=== PATIENT | male | born 1965 | race Caucasian/White ===

== ENCOUNTER 2017-01-14 19:04 | Emergency (ER) | payer BC ==
[~2017-01-14 19:04] MED LIST: GLC500 PO; LEVO1TAB35 PO; ZCRUNK
[2017-01-14 19:10] VITALS: TEMP 36.7; Ht 182.9 cm
[2017-01-14] MEDS ORDERED: FUROSEMIDE 40 MG/4 ML VIAL IV STA (19:33)
[2017-01-14 19:57] VITALS: O2SAT 95
--- NOTE | 2017-01-14 20:01 | DIAGNOSTIC IMAGING REPORT ---
CHEST ONE VIEW PORTABLE HISTORY: Evaluate Fever/Sepsis COMPARISON: None. FINDINGS: The heart is mildly enlarged. Low lung volumes. No focal lung consolidations to suggest pneumonia. No evidence for pulmonary edema. No pleural effusions. No pneumothorax. IMPRESSION: Mild cardiomegaly. Electronically signed by: Lamont Stallworth M.D. 01/14/2017 7:59 PM Dictated Date/Time: 01/14/2017 7:59 PM
[2017-01-14] MEDS ORDERED: LISI40TA PO (20:07)
[2017-01-14 20:09] LABS: URINE APPEARANCE CLEAR (CLEAR); URINE BILIRUBIN NEG (NEG); URINE COLOR YELLOW; URINE NITRITE NEG (NEG); URINE PH 5.5 (4.5-7.5); URINE SPECIFIC GRAVITY 1.011 (1.000-1.030); UROBILINOGEN NEG (NEG)
[2017-01-14 20:11] LABS: MANUAL MICROSCOPIC REQUIRED? NO; REVIEW REQ? NO
[2017-01-14 20:13] LABS: BASO % 0.5 %; BASO ABS # 0.04 K/uL (0-0.2); COMPLETE YES; EOS % 3.2 %; HEMATOCRIT 36.7 % (42-52); IG% 0.1 %; LYMPH % 25.5 %; LYMPH ABS # 2.08 K/uL (1.2-3.4); MEAN CELL VOLUME 88.4 fL (80-100); MEAN CORPUSCULAR HEMOGLOBIN 27.5 pg (25-34); MEAN CORPUSCULAR HGB CONC 31.1 g/dl (32-36); MEAN PLATELET VOLUME 8.3 fL (7.4-10.4); MONO % 8.6 %; NEUT % 62.1 %; PLATELET COUNT 407 K/uL (130-400); RED BLOOD COUNT 4.15 M/uL (4.7-6.1); WHITE BLOOD COUNT 8.15 K/uL (4.8-10.8)
[2017-01-14 20:22] LABS: INR 1.1 (0.9-1.1); PARTIAL THROMBOPLASTIN RATIO 1.2; PROTHROMBIN TIME (PATIENT) 11.4 SECONDS (9.0-12.0)
[2017-01-14 20:29] LABS: ALT/SGPT 28 U/L (12-78); AST/SGOT 15 U/L (15-37); BLOOD UREA NITROGEN 13 mg/dl (7-18); BUN/CREATININE RATIO 14.7 (10-20); CALCIUM 8.6 mg/dl (8.5-10.1); CARBON DIOXIDE 25 mmol/L (21-32); CHLORIDE 105 mmol/L (98-107); CREATININE 0.88 mg/dl (0.60-1.40); GLUCOSE 131 mg/dl (70-99); SODIUM 139 mmol/L (136-145)
[2017-01-14 20:32] LABS: ALKALINE PHOSPHATASE 79 U/L (45-117)
[2017-01-14 20:34] LABS: CKMB/CK RATIO 1.1 (0-3.0)
[2017-01-14] MEDS ORDERED: FURO40TA3 PO (20:50)
--- NOTE | 2017-01-14 20:50 | EMERGENCY ROOM VISIT NOTE ---
History Report prepared by Nora: Julio Escalante Under the Supervision of: Dr. Charles Troy D.O. First contact with patient: 19:23 Chief Complaint: SWELLING TO EXTREMITY Stated Complaint: SWELLING IN LEGS,SOB History of Present Illness The patient is a 51 year old male who presents to the Emergency Room with complaints of worsening bilateral leg swelling that has been present for the past month. At the patient's baseline, he notes mild swelling to these areas, but noticed it worsening recently. He does not take any medications for this issue. He has a past medical history of diabetes. He usually uses compression stockings, but when he tried them today, he had pain in his legs. He went to a walk in clinic today and was sent to the ER secondary to his shortness of breath with exertion. He states that he is normally very sedentary. He had a stress test a couple of months ago that was normal. His kidney function was also found to be normal. He denies any of abnormal symptoms. Source of History: patient Onset: last month Position: leg (bilateral) Symptom Intensity: moderate Quality: other (Edema) Timing: worsening Associated Symptoms: + SOB (with exertion) Note: He denies any other abnormal symptoms. Review of Systems See HPI for pertinent positives & negatives. A total of 10 systems reviewed and were otherwise negative. Past Medical & Surgical Medical Problems: (1) Diabetes Family History Omitted secondary to the patient's age. Social History Smoking Status: Never Smoker Smokeless Tobacco Use: No Drug Use: none Marital Status: Housing Status: lives with family Occupation Status: employed Current/Historical Medications Scheduled Cholecalciferol (Vitamin D3), 1 TAB PO DAILY Furosemide (Lasix), 40 MG PO QD Glyburide (Diabeta), 5 MG PO DAILY Lisinopril (Prinivil), 40 MG PO DAILY Metformin Hcl (Glucophage), 1,000 MG PO BID Multivitamin (Multivitamin), 1 TAB PO DAILY Pioglitazone Hcl (Actos), 45 MG PO DAILY Pravastatin Sodium (Pravastatin Sodium), 40 MG PO DAILY Allergies Coded Allergies: Sulfa Antibiotics (Unverified Allergy, Severe, SWELLING, 01/14/17) Penicillins (Unverified Allergy, Intermediate, swelling, 01/23/10) Physical Exam Vital Signs Date Time Temp Pulse Resp B/P (MAP) Pulse Ox O2 Delivery O2 Flow Rate FiO2 01/14/17 20:30 108 6/26/17 19:57 95 Room Air 01/14/17 19:10 36.7 105 20 158/88 93 Room Air Physical Exam CONSTITUTIONAL/VITAL SIGNS: Reviewed / noted above. GENERAL: Non-toxic in appearance. INTEGUMENTARY: Warm, dry, and [place]. HEAD: Normocephalic. EYES: without scleral icterus or trauma. ENT/OROPHARYNX: clear and moist. LYMPHADENOPATHY/NECK: Is supple without lymphadenopathy or meningismus. RESPIRATORY: Lungs clear and equal. CARDIOVASCULAR: Regular rate and rhythm. GI/ABDOMEN: Soft and nontender. No organomegaly or pulsatile mass. No rebound or guarding. Normal bowel sounds. Lower abdominal edema. EXTREMITIES: Pitting pedal edema to the bilateral lower extremities. Appears symmetric. BACK: No CVA tenderness. NEUROLOGICAL: Intact without focal deficits. PSYCHIATRIC: normal affect. MUSCULOSKELETAL: Normally developed with good muscle tone. Medical Decision & Procedures ER Provider Diagnostic Interpretation: Radiology results as stated below per my review and radiologist interpretation: CHEST ONE VIEW PORTABLE HISTORY: Evaluate Fever/Sepsis COMPARISON: None. FINDINGS: The heart is mildly enlarged. Low lung volumes. No focal lung consolidations to suggest pneumonia. No evidence for pulmonary edema. No pleural effusions. No pneumothorax. IMPRESSION: Mild cardiomegaly. Electronically signed by: Lamont Stallworth M.D. 01/14/2017 7:59 PM Dictated Date/Time: 01/14/2017 7:59 PM Laboratory Results 01/14/17 20:00 Red Blood Count 4.15, Mean Corpuscular Volume 88.4, Mean Corpuscular Hemoglobin 27.5, Mean Corpuscular Hemoglobin Concent 31.1, Mean Platelet Volume 8.3, Neutrophils (%) (Auto) 62.1, Lymphocytes (%) (Auto) 25.5, Monocytes (%) (Auto) 8.6, Eosinophils (%) (Auto) 3.2, Basophils (%) (Auto) 0.5, Neutrophils # (Auto) 5.06, Lymphocytes # (Auto) 2.08, Monocytes # (Auto) 0.70, Eosinophils # (Auto) 0.26, Basophils # (Auto) 0.04 01/14/17 20:00 Test 01/14/17 19:50 01/14/17 20:00 Urine Color YELLOW Urine Appearance CLEAR (CLEAR) Urine pH 5.5 (4.5-7.5) Urine Specific [place] 1.011 (1.000-1.030) Urine Protein NEG (NEG) Urine Glucose (UA) NEG (NEG) Urine Ketones NEG (NEG) Urine Occult Blood NEG (NEG) Urine Nitrite NEG (NEG) Urine Bilirubin NEG (NEG) Urine Urobilinogen NEG (NEG) Urine Leukocyte Esterase NEG (NEG) White Blood Count 8.15 K/uL (4.8-10.8) Red Blood Count 4.15 M/uL (4.7-6.1) Hemoglobin 11.4 g/dL (14.0-18.0) Hematocrit 36.7 % (42-52) Mean Corpuscular Volume 88.4 fL (80-100) Mean Corpuscular Hemoglobin 27.5 pg (25-34) Mean Corpuscular Hemoglobin Concent 31.1 g/dl (32-36) Platelet Count 407 K/uL (130-400) Mean Platelet Volume 8.3 fL (7.4-10.4) Neutrophils (%) (Auto) 62.1 % Lymphocytes (%) (Auto) 25.5 % Monocytes (%) (Auto) 8.6 % Eosinophils (%) (Auto) 3.2 % Basophils (%) (Auto) 0.5 % Neutrophils # (Auto) 5.06 K/uL (1.4-6.5) Lymphocytes # (Auto) 2.08 K/uL (1.2-3.4) Monocytes # (Auto) 0.70 K/uL (0.11-0.59) Eosinophils # (Auto) 0.26 K/uL (0-0.5) Basophils # (Auto) 0.04 K/uL (0-0.2) RDW Standard Deviation 43.5 fL (36.4-46.3) RDW Coefficient of Variation 13.5 % (11.5-14.5) Immature Granulocyte % (Auto) 0.1 % Immature Granulocyte # (Auto) 0.01 K/uL (0.00-0.02) Prothrombin Time 11.4 SECONDS (9.0-12.0) Prothromb Time International Ratio 1.1 (0.9-1.1) Activated Partial Thromboplast Time 30.1 SECONDS (21.0-31.0) Partial Thromboplastin Ratio 1.2 Anion Gap 9.0 mmol/L (3-11) Estimated GFR () 116.1 Estimated GFR (Non- 100.2 BUN/Creatinine Ratio 14.7 (10-20) Calcium Level 8.6 mg/dl (8.5-10.1) Total Bilirubin 0.4 mg/dl (0.2-1) Direct Bilirubin < 0.1 mg/dl (0-0.2) Aspartate Amino Transf (AST/SGOT) 15 U/L (15-37) Alanine Aminotransferase (ALT/SGPT) 28 U/L (12-78) Alkaline Phosphatase 79 U/L (45-117) Total Creatine Kinase 167 U/L (39-308) Creatine Kinase MB 1.9 ng/ml (0.5-3.6) Creatine Kinase MB Ratio 1.1 (0-3.0) Troponin I < 0.015 ng/ml (0-0.045) Pro-B-Type Natriuretic Peptide 54 pg/ml (0-900) Total Protein 7.5 gm/dl (6.4-8.2) Albumin 3.5 gm/dl (3.4-5.0) Lipase 111 U/L (73-393) Laboratory results as stated above per my review. Medications Administered Medications (Trade) Dose Ordered Sig/Yonas Route Start Time Stop Time Status Last Admin Dose Admin Furosemide (Lasix Inj) 40 mg NOW STAT IV 01/14/17 19:33 01/14/17 19:36 DC 01/14/17 19:33 40 MG ECG Indication: SOB/dyspnea Rate (beats per minute): 112 Rhythm: sinus tachycardia Findings: no acute ischemic change, no ectopy ED Course 1922: Previous medical records were reviewed. The patient was evaluated in room B2. A complete history and physical examination was performed. 1932: Ordered Lasix Inj 40 mg IV 2051: On reevaluation, the patient is resting. I discussed the results and findings with the patient. He verbalized agreement of the treatment plan. He was discharged home. Medical Decision Differential includes DVT, congestive heart failure, multifactorial edema, anasarca, musculoskeletal, infection, joint effusion, trauma, lymphedema, idiopathic, CHF, as well as others were entertained.. Medication Reconciliation: I attest that I have personally reviewed the patient' s current medication list. Blood pressure Screening: Patient was found to have an elevated blood pressure and was referred to their primary doctor for recheck and further treatment. This is a 51-year-old male who presents to the ED with a chief complaint of lower extremity edema. He states that his edema is mostly chronic but seems to be worsening. He has had recent cardiac evaluation including echocardiogram which was reportedly normal. The patient has edema in his lower extremities and also in the lower abdomen. He denies any shortness of breath. He is a very large male. The patient has not had fevers or other illness. His edema is symmetric. Exam reveals bilateral pedal edema that appears to be pitting in the lower portions of the extremities. Edema is difficult to appreciate in the upper portions of the lower extremities. There is some dependent edema in the lower pannus. The patient has a chest x-ray that does not show acute disease. CBC and complete metabolic panel are unremarkable. Troponin is negative, BNP is normal. EKG showed a sinus tach at a rate of 112. The patient was given IV Lasix here. He'll be discharged on a 5 day course of Lasix. I recommended follow-up with his PCP. Impression Primary Impression: Swelling of left extremity Additional Impression: Swelling of right extremity Scribe Attestation The scribe's documentation has been prepared under my direction and personally reviewed by me in its entirety. I confirm that the note above accurately reflects all work, treatment, procedures, and medical decision making performed by me. Departure Information Dispostion Home / Self-Care Prescriptions Furosemide (LASIX) 40 Mg Tab 40 MG PO QD for 5 Days, #5 TAB Prov: Charles Troy D.O. 01/14/17 Referrals Stpehen Huffman M.D. (PCP) Forms HOME CARE DOCUMENTATION FORM, IMPORTANT VISIT INFORMATION, WORK / SCHOOL INSTRUCTIONS Patient Instructions My [facility] Additional Instructions Lasix as prescribed once daily. This will make you urinate frequently. Follow-up with your doctor later this week for recheck. Problem Qualifiers
[2017-01-14 21:32] VITALS: BP 129/74; PULSE 108; O2SAT 97
== END 2017-01-14 21:46 | disposition home or self-care (01) ==
LOC: C.EDB 19:05
DX: R60.0 Localized edema (principal); E11.9 Type 2 diabetes mellitus without complications; Z79.84 Long term (current) use of oral hypoglycemic drugs

== ENCOUNTER → 2017-03-15 | Outpatient (CLI) | payer BC ==
[~2017-03-15] MED LIST changes: +ACT/45 PO; +CHOL1000 PO; -GLC500 PO; +GLY/5 PO; -LEVO1TAB35 PO; +LISI40TA PO; +LOSA100T65 PO; +METF-384 PO; +MULT-506 PO; +PRAV40TA2 PO; +VNTHFA/IN INH; -ZCRUNK
--- NOTE | 2017-03-15 17:09 | DIAGNOSTIC IMAGING REPORT ---
CHEST 2 VIEWS ROUTINE CLINICAL HISTORY: 51 years-old Male presenting with SOB. TECHNIQUE: PA and lateral views of the chest were obtained. COMPARISON: 01/14/2017. FINDINGS: Cardiac silhouette enlarged, unchanged. Lungs and pleural spaces clear. Osseous structures normal. Upper abdomen normal. IMPRESSION: 1. Cardiomegaly. No other acute cardiopulmonary disease. Electronically signed by: Tomi Young M.D. 03/15/2017 5:07 PM Dictated Date/Time: 03/15/2017 5:04 PM
== END | disposition home or self-care (01) ==
LOC: C.RAD1850 16:08
PROVIDERS: ATTEND Family Medicine
DX: R06.02 Shortness of breath (principal); I51.7 Cardiomegaly

== ENCOUNTER 2017-03-19 16:40 | Emergency (ER) | payer BC ==
[~2017-03-19] VITALS: Ht 182.9 cm; Wt 235.0 kg
[~2017-03-19 16:40] MED LIST changes: -ACT/45 PO; -CHOL1000 PO; -GLY/5 PO; -LOSA100T65 PO; -METF-384 PO; -MULT-506 PO; -OPTIRAY 320 IV PRN; -PRAV40TA2 PO; -VNTHFA/IN INH
[2017-03-19 17:07] VITALS: TEMP 36.8; Ht 182.9 cm; Wt 235.0 kg
[2017-03-19 19:05] LABS: BASO % 0.6 %; BASO ABS # 0.06 K/uL (0-0.2); COMPLETE YES; EOS % 2.5 %; HEMATOCRIT 33.8 % (42-52); IG% 0.2 %; LYMPH % 19.3 %; LYMPH ABS # 1.92 K/uL (1.2-3.4); MEAN CELL VOLUME 87.8 fL (80-100); MEAN CORPUSCULAR HEMOGLOBIN 27.8 pg (25-34); MEAN CORPUSCULAR HGB CONC 31.7 g/dl (32-36); MEAN PLATELET VOLUME 8.6 fL (7.4-10.4); MONO % 9.1 %; NEUT % 68.3 %; PLATELET COUNT 397 K/uL (130-400); RED BLOOD COUNT 3.85 M/uL (4.7-6.1); WHITE BLOOD COUNT 9.96 K/uL (4.8-10.8)
[2017-03-19] MEDS: SODIUM CHLORIDE 0.9% 1000ML 1,000 ML IV STA ×2 (19:08→19:50)
[2017-03-19 19:19] LABS: BLOOD UREA NITROGEN 18 mg/dl (7-18); BUN/CREATININE RATIO 16.4 (10-20); CALCIUM 8.5 mg/dl (8.5-10.1); CARBON DIOXIDE 26 mmol/L (21-32); CHLORIDE 102 mmol/L (98-107); GLUCOSE 228 mg/dl (70-99); POTASSIUM 4.5 mmol/L (3.5-5.1); SODIUM 134 mmol/L (136-145)
--- NOTE | 2017-03-19 19:19 | DIAGNOSTIC IMAGING REPORT ---
CHEST ONE VIEW PORTABLE CLINICAL HISTORY: Atypical chest pain COMPARISON STUDY: A 2517 FINDINGS: The cardiac silhouette remains markedly enlarged with a globular configuration. There is no failure. There is no focal pulmonary consolidation.[ No pleural effusions are visualized. IMPRESSION: 1. No acute findings 2. Stable enlarged cardiac silhouette with a globular configuration Electronically signed by: Kayode Guzman M.D. 03/19/2017 7:18 PM Dictated Date/Time: 03/19/2017 7:17 PM
[2017-03-19] MEDS ORDERED: VNTHFA/IN INH (19:24)
[2017-03-19] MEDS ORDERED: LOSA100T65 PO (19:24)
[2017-03-19] MEDS ORDERED: METF-384 PO (20:06)
[2017-03-19] MEDS ORDERED: ACT/45 PO (20:07)
[2017-03-19] MEDS ORDERED: MULT-506 PO (20:07)
[2017-03-19] MEDS ORDERED: GLY/5 PO (20:07)
[2017-03-19] MEDS ORDERED: CHOL1000 PO (20:07)
[2017-03-19] MEDS ORDERED: PRAV40TA2 PO (20:07)
--- NOTE | 2017-03-19 21:44 | EMERGENCY ROOM VISIT NOTE ---
History Report prepared by Nora: Jessica Shaver Under the Supervision of: Dr. Kevin Figueroa D.O. First contact with patient: 18:32 Chief Complaint: REFERRED BY DOCTOR Stated Complaint: REFFERED FROM CT SCAN History of Present Illness The patient is a 51 year old male who presents to the Emergency Room with complaints of worsening SOB starting 4 months ago. The patient went to the walk in clinic 4 days ago for his SOB and was sent to have a chest CT after an elevated D dimer. He had the CT today and was sent to the ED after the results. His SOB worsens when he walks around or bends over. He is SOB when he lies down at night to sleep. He does not feel SOB at rest. He notes leg swelling and abdominal fullness for the past 2 months. He has had a productive cough for the past month. He denies any chest pain. He reports steady weight gain which is normal for him. He is not on any blood thinners. No trauma. He denies any history of KS or cancer. He has a history of type 2 diabetes and hypertension. 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 He had a stress test and echocardiogram in October which were normal. CT was performed as an outpatient which showed a large pericardial effusion patient was referred into the ER. Source of History: patient Onset: 4 months ago Position: other (global) Quality: other (SOB) Timing: worsening Modifying Factors (Worsening): exertion, movement, other (lying flat) Modifying Factors (Relieving): rest Associated Symptoms: + cough, No chest pain Note: Pt reports abdominal fullness, leg swelling. Review of Systems See HPI for pertinent positives & negatives. A total of 10 systems reviewed and were otherwise negative. Past Medical & Surgical Medical Problems: (1) Diabetes Family History No pertinent family history stated. Social History Smoking Status: Never Smoker Drug Use: none Marital Status: Housing Status: lives with family Occupation Status: employed Current/Historical Medications Scheduled Albuterol Hfa (Ventolin Hfa), 2 PUFFS INH QID Cholecalciferol (Vitamin D3), 1,000 INTER.UNIT PO DAILY Glyburide (Diabeta), 5 MG PO DAILY Losartan Potassium (Cozaar), 100 MG PO DAILY Metformin Hcl (Glucophage), 1,000 MG PO BID Multivitamin (Multivitamin), 1 TAB PO DAILY Pioglitazone Hcl (Actos), 45 MG PO DAILY Pravastatin Sodium (Pravastatin Sodium), 40 MG PO DAILY Allergies Coded Allergies: Sulfa Antibiotics (Unverified Allergy, Severe, SWELLING, 01/14/17) Penicillins (Unverified Allergy, Intermediate, swelling, 01/23/10) Physical Exam Vital Signs Date Time Temp Pulse Resp B/P (MAP) Pulse Ox O2 Delivery O2 Flow Rate FiO2 03/19/17 22:10 118 21 95 03/19/17 22:01 132/98 03/19/17 21:40 118 25 94 03/19/17 21:38 116 25 114/81 94 Room Air 03/19/17 21:04 115 30 131/90 95 Room Air 03/19/17 20:33 115 20 125/77 95 Room Air 03/19/17 20:31 112/90 03/19/17 20:30 115 29 95 03/19/17 20:09 114/75 03/19/17 20:00 117 12 95 03/19/17 19:30 124 34 91 03/19/17 19:25 121 23 116/76 94 Room Air 03/19/17 19:15 121 03/19/17 17:07 36.8 118 24 112/76 95 Room Air Physical Exam GENERAL: morbidly obese, sitting up in bed, disheveled EYE EXAM: normal conjunctiva OROPHARYNX: no exudate, no erythema, lips, buccal mucosa, and tongue normal and mucous membranes are moist NECK: supple, no nuchal rigidity, no adenopathy, non-tender LUNGS: Clear to auscultation. Normal chest wall mechanics HEART: distant heart sounds, positive S1, positive S2 BEDSIDE ECHO: Limited secondary to body habitus, Large pericardial effusion with what appears to be tamponade physiology ABDOMEN: abdomen soft, non-tender, normo-active bowel sounds, no masses, no rebound or guarding. UPPER EXTREMITIES: upper extremities are grossly normal. LOWER EXTREMITIES: Pitting edema tracking up to the abdomen. NEURO EXAM: Normal sensorium, cranial nerves II-XII grossly intact, normal speech, no gross weakness of arms, no gross weakness of legs. Medical Decision & Procedures ER Provider Diagnostic Interpretation: Radiology results as stated below per my review and the radiologist's interpretation: CHEST ONE VIEW PORTABLE CLINICAL HISTORY: Atypical chest pain COMPARISON STUDY: A 251 FINDINGS: The cardiac silhouette remains markedly enlarged with a globular configuration. There is no failure. There is no focal pulmonary consolidation.[ No pleural effusions are visualized. IMPRESSION: 1. No acute findings 2. Stable enlarged cardiac silhouette with a globular configuration Electronically signed by: Kayode Guzman M.D. 03/19/2017 7:18 PM Dictated Date/Time: 03/19/2017 7:17 PM Laboratory Results 03/19/17 18:55 Red Blood Count 3.85, Mean Corpuscular Volume 87.8, Mean Corpuscular Hemoglobin 27.8, Mean Corpuscular Hemoglobin Concent 31.7, Mean Platelet Volume 8.6, Neutrophils (%) (Auto) 68.3, Lymphocytes (%) (Auto) 19.3, Monocytes (%) (Auto) 9.1, Eosinophils (%) (Auto) 2.5, Basophils (%) (Auto) 0.6, Neutrophils # (Auto) 6.80, Lymphocytes # (Auto) 1.92, Monocytes # (Auto) 0.91, Eosinophils # (Auto) 0.25, Basophils # (Auto) 0.06 03/19/17 18:55 Test 03/19/17 18:55 White Blood Count 9.96 K/uL (4.8-10.8) Red Blood Count 3.85 M/uL (4.7-6.1) Hemoglobin 10.7 g/dL (14.0-18.0) Hematocrit 33.8 % (42-52) Mean Corpuscular Volume 87.8 fL (80-100) Mean Corpuscular Hemoglobin 27.8 pg (25-34) Mean Corpuscular Hemoglobin Concent 31.7 g/dl (32-36) Platelet Count 397 K/uL (130-400) Mean Platelet Volume 8.6 fL (7.4-10.4) Neutrophils (%) (Auto) 68.3 % Lymphocytes (%) (Auto) 19.3 % Monocytes (%) (Auto) 9.1 % Eosinophils (%) (Auto) 2.5 % Basophils (%) (Auto) 0.6 % Neutrophils # (Auto) 6.80 K/uL (1.4-6.5) Lymphocytes # (Auto) 1.92 K/uL (1.2-3.4) Monocytes # (Auto) 0.91 K/uL (0.11-0.59) Eosinophils # (Auto) 0.25 K/uL (0-0.5) Basophils # (Auto) 0.06 K/uL (0-0.2) RDW Standard Deviation 45.3 fL (36.4-46.3) RDW Coefficient of Variation 14.1 % (11.5-14.5) Immature Granulocyte % (Auto) 0.2 % Immature Granulocyte # (Auto) 0.02 K/uL (0.00-0.02) Anion Gap 6.0 mmol/L (3-11) Est Creatinine Clear Calc Drug Dose 159.7 ml/min Estimated GFR () 90.2 Estimated GFR (Non- 77.9 BUN/Creatinine Ratio 16.4 (10-20) Calcium Level 8.5 mg/dl (8.5-10.1) Total Creatine Kinase 221 U/L (39-308) Creatine Kinase MB 2.3 ng/ml (0.5-3.6) Creatine Kinase MB Ratio 1.0 (0-3.0) Troponin I < 0.015 ng/ml (0-0.045) Pro-B-Type Natriuretic Peptide 135 pg/ml (0-900) Thyroid Stimulating Hormone (TSH) 3.700 uIu/ml (0.300-4.500) Laboratory results per my review. Medications Administered Medications (Trade) Dose Ordered Sig/Yonas Route Start Time Stop Time Status Last Admin Dose Admin Sodium Chloride 1,000 ml @ 999 mls/hr Q1H1M STAT IV 03/19/17 18:58 03/19/17 19:58 DC 03/19/17 19:50 999 MLS/HR ECG Indication: tachycardia Rate (beats per minute): 126 Rhythm: sinus tachycardia Findings: other (low voltage, T wave flattening inferior and lateral) ED Course ED COURSE: Vital signs were reviewed and showed tachycardia. The patients medical record was reviewed The above diagnostic studies were performed and reviewed. ED treatments and interventions as stated above. 1837: The patient was evaluated in room B6. A complete history and physical examination was performed. 8: NSS 1000 ml @ 999 mls/hr IV. 9: I discussed the patient's case with Dr. Jay, [facility] cardiology. He discussed with Dr. Esteban who was social contact worker who noted that he would be unable to perform the procedure secondary to patient's weight/body habitus. He will come to evaluate the patient. 1909: I discussed the patient's case with Dr. Fritz, [facility] roll tender. He will come evaluate the patient. 1929: Bedside echo was performed with cardiology at bedside. 1942: I discussed the patient's case with [facility] who declines the patient. 1954: I discussed the patient's case with Dr. Garcia, cardiothoracic surgery [facility]. He has accepted the patient for transfer. 1957: I discussed the patient's case with Dr. Luciano, emergency medicine [facility]. The patient has been accepted for transfer. 2026: Upon reevaluation, the patient is stable.I discussed my findings with the patient and he understands and agrees with the treatment plan. Based on the patients age, coexisting illnesses, exam and lab findings the decision to treat as an inpatient was made. The patient remained stable while under my care. The patient will be transferred to [facility]. 2035: I discussed the patient's case with Esequiel Gerardhey interventional cardiology. He agrees with transfer to [facility] by [facility]. Patient is awaiting transport. 2112: [facility] has been turned around by weather. Ground transport will be arranged. Medical Decision Differential diagnoses includes but is not limited to pneumonia, bronchitis, COPD/Asthma exacerbation, pneumothorax, pulmonary embolism, congestive heart failure, acute coronary syndrome. Patient is a 51-year-old male who has had progressive shortness breath for the past several months. He notes recently over the past week it has significantly worsened. He has CT PE performed as an outpatient today and was referred into the ER for a pericardial effusion. There is no history of trauma, recent surgery , blood thinners, no thyroid issues, infections, and no history of cancer. Bedside ultrasound shows a large pericardial effusion and what appears to be partial collapse of the RV and diastole but difficult to evaluate secondary to body habitus. At this time, initially consulted cardiology who evaluated him at bedside. He agrees that it is a limited exam and this needs to be drained. He discussed this with our director medical writing. With his weight he is unable to perform it under fluoroscopy on the Table. Consequently he recommended transferring. Following this I did look up this gentleman's insurance but based on his weight I did not think we would be able to fly him to [place]. I felt uncomfortable sending him to [place] over a two-hour drive in an ambulance. I did call [facility] who declined to accept him due to his body habitus. Following this I contacted [facility] and he was accepted by Dr. Garcia from cardiothoracic surgery. They did contact the ER to obtain a bed to transfer him quicker; accepted by Dr. Luciano. [facility] declined to fly. [facility] did accept but eventually had to turn around secondary to weather. I discussed the case with Dr Marshall from [facility] who gave the precertification to transfer to [facility] as it is closer. Patient was given a bolus normal saline. Blood pressure remained stable. He remained persistently tachycardic as expected. Patient will be taken to [facility] via [email or web address] ground as no one can fly and it is the closest facility that will accept this gentleman who is tachycardic with a large pericardial effusion and EKG with low voltage and a bedside echo which suggest early tamponade physiology. I did not do a pericardiocentesis emergently in the ER as he does appear to be stable and this appears to be more of a prolonged course. Medication Reconcilliation Current Medication List: was personally reviewed by me Blood Pressure Screening Patient's blood pressure: Normal blood pressure Blood pressure disposition: Did not require urgent referral Consults Time Called: 1849 Consulting Physician: Dr. Jay, [facility] cardiology Returned Call: 1858 I discussed the patient's case with him. He discussed with Dr. Esteban who was social contact worker who noted that he would be unable to perform the procedure secondary to patient's weight/body habitus. He will come to evaluate the patient. Additional Consults: Time Called: 1899 Consulted Physician: Dr. Fritz, [facility] roll tender Returned Call: 1909 Additional Comments: I discussed the patient's case with him. He will come evaluate the patient. Time Called: 1932 Consulted Physician: [facility] Returned Call: 1942 Additional Comments: I discussed the patient's case with [facility] who declines the patient. Impression Primary Impression: Tamponade Additional Impression: Pericardial effusion Critical Care I have personally spent 35 minutes of critical care time in the direct management of this patient. This includes bedside care, interpretation of diagnostic studies, and testing, discussion with consultants, patient, and family members, and other required patient management activities. This 35 minutes is in excess of all separately billable procedures. Scribe Attestation The scribe's documentation has been prepared under my direction and personally reviewed by me in its entirety. I confirm that the note above accurately reflects all work, treatment, procedures, and medical decision making performed by me. Departure Information Dispostion Transfer Acute Care Facility Referrals Stephen Huffman M.D. (PCP) Patient Instructions My [facility] Problem Qualifiers
[2017-03-19 22:35] VITALS: BP 118/89; PULSE 118; O2SAT 94
--- NOTE | 2017-03-20 06:51 | CARDIOLOGY CONSULTATION ---
DATE OF CONSULTATION: 03/19/2017 TIME: 7:[address] Figueroa in the Emergency Room. NONPROFIT FUNDRAISER: Bg Jay D.O., [facility] Cardiology. REASON FOR CONSULTATION: Large pericardial effusion. Dear Dr. Figueroa, then requesting cardiology consultation on Yoshi with regards to his large pericardial effusion. As you know, he has had progressive shortness of breath over the last 4 months. 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 He has chronic lower extremity edema secondary to his morbid obesity and likely venous insufficiency. He notes he has had increased abdominal distention. He believes his weight is up, but he does not weigh himself on a regular basis. He has been short of breath even sleeping at night and he notes that although he is sleeping in bed he does feel dyspneic, lying flat. He denies any chest pain. He does have productive sputum which is whitish in color. He denies any fevers or chills or recent upper respiratory tract infection or a recent viral illness. He denies any constitutional symptoms to suggest systemic inflammatory illness. He denies any palpitations, although he is aware that his heart rate is faster than usual. He has chronic erythema of his lower extremities. In light of his ongoing dyspnea, he was sent for a CAT scan this evening to rule out a pulmonary embolism. There was no evidence of thoracic aortic dilation. There was suboptimal pulmonary artery opacification without any evidence of central emboli. There were no pleural effusions. There is a very large pericardial effusion which exceeds water attenuation and therefore could be hemorrhagic or exudative. In personally reviewing his CAT scan images with Dr. Figueroa, he has approximately a 4 cm effusion around the LV and a 3 cm fusion around the RV. The rest of review of systems otherwise negative. PAST MEDICAL HISTORY: 1. Large pericardial effusion likely with some degree of tamponade physiology. 2. Morbid obesity. 3. Chronic lower extremity edema. 4. Diabetes mellitus type 2. 5. Hyperlipidemia. SOCIAL HISTORY: He is , he lives with his family. Denies any tobacco or alcohol use. FAMILY HISTORY: Noncontributory. ALLERGIES: SULFA AND PENICILLIN. PHYSICAL EXAMINATION: GENERAL: He is awake, alert, oriented x3. He does look to be in a mild degree of distress. He is short of breath lying flat. He is short of breath lying on his left side to do bedside imaging. VITAL SIGNS: His heart rate is 121, his respirations are 23, his blood pressure 116/76, his pulse ox is 94% on room air. HEENT AND NECK: His carotid upstrokes were diminished and tachycardic. I could not assess his jugular venous pressure due to his neck size. His sclerae is anicteric. His hearing is normal. There were no carotid bruits. LUNGS: Clear to auscultation bilaterally. No rales, rhonchi or wheezing. HEART: Tachycardic, his heart sounds are very distant. There were no appreciable murmurs or rubs. ABDOMEN: Obese, nontender, nondistended. SKIN: Significant striae on his abdominal wall. EXTREMITIES: Moderate pitting edema to the knees bilaterally with significant erythema of his lower extremities. PSYCHIATRIC: His affect appeared appropriate. NEUROLOGIC: He is awake, alert and oriented x3. DIAGNOSTIC STUDIES: Chest x-ray, enlarged cardiac silhouette with a globular configuration. CAT scan as discussed above. LABORATORY STUDIES: Hemoglobin 10.7, white count 9.96, his platelet count is 397. Sodium 134, potassium 4.5, BUN 18, creatinine 1.1. His troponin is negative. His ProBNP was normal. His TSH is normal. EKG - sinus tachycardia, low voltage QRS with some degree of electrical alternans versus respiratory variation. Bedside echo very limited study done with Dr. Figueroa, he has a large a 3 cm anterior pericardial effusion. There appears to be a 2 cm posterior pericardial effusion. The RV free wall is not well seen. IMPRESSION: 1. Large symptomatic pericardial effusion with concern for tamponade physiology. 2. Progressive shortness of breath and dyspnea on exertion. 3. Morbid obesity, weighing 240 kilograms. 4. Chronic lower extremity edema. PLAN AND RECOMMENDATIONS: I did contact Dr. Esteban, of interventional cardiology and we are both in agreement that this pericardial effusion cannot be drained here at [facility]. The cytology laboratory manager table will not hold Mr. Beltran's weight, in addition Dr. Esteban only feels comfortable doing it under fluoroscopic guidance and does not feel like that procedure can be done safely here at [facility]. In addition, he likely needs a pericardial window with a pericardial biopsy and placement of a pigtail catheter, which cannot be performed here either. As was discussed with Dr. Figueroa, I believe he needs to be transferred to a facility that has CT surgical capability as this will need to be performed in the operating room. As was discussed with Dr. Esteban, I would not to delay in having the histology technologist come in who is 45 minutes away, but rather transfer him to a facility safely as quickly as possible such that advanced CT surgery care can be provided. He is tachycardic, but he does have an adequate blood pressure and oxygenation at this point. I would avoid any diuretics as well as any AV-miah blockers. In addition, he will need a workup for systemic inflammatory disease and will need regular cancer screening as well. Additionally, the pericardial window is potentially diagnostic in ruling out malignancy and other systemic diseases. All this was discussed with the ER as well as Dr. Esteban. GIGI
== END 2017-03-19 22:35 | disposition short-term general hospital (02) ==
LOC: C.EDB 16:41
DX: I31.4 Cardiac tamponade (principal); I31.3 Pericardial effusion (noninflammatory); E66.01 Morbid (severe) obesity due to excess calories; R60.0 Localized edema; E11.9 Type 2 diabetes mellitus without complications; E78.5 Hyperlipidemia, unspecified; I10 Essential (primary) hypertension; Z79.899 Other long term (current) drug therapy

== ENCOUNTER → 2017-03-19 | Outpatient (CLI) | payer BC ==
[~2017-03-19] MED LIST changes: +OPTIRAY 320 IV PRN
--- NOTE | 2017-03-19 16:21 | DIAGNOSTIC IMAGING REPORT ---
CT ANGIOGRAM OF THE CHEST CLINICAL HISTORY: Atypical chest pain COMPARISON STUDY: Chest x-ray dated 03/15/2017 TECHNIQUE: Following the IV administration of 120 mL of Optiray-320, CT angiogram of the thorax was performed from the thoracic inlet to the lung bases utilizing the pulmonary embolus protocol. Images are reviewed in the axial, sagittal, and coronal planes. IV contrast was administered without complication. MIP imaging was performed. A dose lowering technique was utilized adhering to the principles of ALARA. CT DOSE: 787.82 mGy.cm FINDINGS: There are borderline enlarged right paratracheal lymph nodes. There is no evidence of pathologic hilar or axillary lymphadenopathy. There was no evidence of thoracic aortic dilatation. There is suboptimal pulmonary arterial opacification. No central emboli are visualized. No pleural effusions are visualized. There was no evidence of focal pulmonary consolidation. There is a linear scarring/atelectasis within the left upper lobe. There is a large pericardial effusion. The effusion exceeds water attenuation and therefore could be hemorrhagic or exudative. Cardiology consultation is recommended. IMPRESSION: 1. Suboptimal pulmonary arterial opacification. No central emboli are visualized. Correlation with leg ultrasonography might be considered in follow-up 2. Large pericardial effusion. Cardiology consultation is recommended Electronically signed by: Kayode Guzman M.D. 03/19/2017 4:20 PM Dictated Date/Time: 03/19/2017 4:14 PM
== END | disposition home or self-care (01) ==
LOC: C.CTS 15:58
PROVIDERS: ATTEND Family Medicine
DX: R06.02 Shortness of breath (principal); R05 Cough; E66.9 Obesity, unspecified; R60.0 Localized edema; R53.83 Other fatigue; I31.3 Pericardial effusion (noninflammatory)